=== PATIENT | female | born 1945 | race Two or more races ===

== ENCOUNTER 2022-10-15 21:11 | Emergency (ER) | payer OTHER ==
[~2022-10-15] VITALS: Ht 157.5 cm; Wt 100.0 kg
[2022-10-16 01:28] VITALS: BP 141/51
== END 2022-10-16 01:31 | disposition home or self-care (01) ==
LOC: ER 21:11
DX: S62.112A Displaced fracture of triquetrum [cuneiform] bone, left wrist, initial encounter for closed fracture (principal); S00.83XA Contusion of other part of head, initial encounter; I10 Essential (primary) hypertension; E11.9 Type 2 diabetes mellitus without complications; Z88.8 Allergy status to other drugs, medicaments and biological substances; W01.198A Fall on same level from slipping, tripping and stumbling with subsequent striking against other object, initial encounter; Y93.89 Activity, other specified; Y92.89 Other specified places as the place of occurrence of the external cause; Y99.8 Other external cause status
CPT/HCPCS: 29125; 70450; 70486; 73110; 73130

== ENCOUNTER 2023-02-26 10:58 | Emergency (ER) | payer OTHER ==
[~2023-02-26] VITALS: Ht 157.5 cm; Wt 83.9 kg
[2023-02-26 12:40] VITALS: BP 182/72; PULSE 77; RESP 18; TEMP 97; O2SAT 96
[2023-02-26] MEDS ORDERED: DexAMETHasone SOD PHOS 4 MG/1ML SDV INJ IM ONE (13:15)
[2023-02-26] MEDS ORDERED: diphenhdrAMINE HCL 50 MG/1 ML VL IM ONE (13:15)
[2023-02-26] MEDS ORDERED: TRIA0.02 TOP (13:31)
[2023-02-26] MEDS ORDERED: HYDR-5028 PO (13:31)
[2023-02-26] MEDS ORDERED: METH4PAK PO (13:31)
== END 2023-02-26 13:32 | disposition home or self-care (01) ==
LOC: ER 10:58
DX: L30.9 Dermatitis, unspecified (principal); I10 Essential (primary) hypertension; E11.9 Type 2 diabetes mellitus without complications; Z88.8 Allergy status to other drugs, medicaments and biological substances
CPT/HCPCS: 96372; 99284; J1100; J1200

== ENCOUNTER 2023-07-23 18:21 | Emergency (ER) | payer OTHER ==
[~2023-07-23] VITALS: Ht 157.5 cm; Wt 91.2 kg
[~2023-07-23 18:21] MED LIST: HYDR-5028 PO; METH4PAK PO; TRIA0.02 TOP
[2023-07-23 21:45] VITALS: BP 159/72; PULSE 66; RESP 18; TEMP 98; O2SAT 95
[2023-07-23] MEDS ORDERED: LIDOCAINE 1% HCL (LOCAL ANESTH.) INJ 20ML MDV ONE (22:14)
[2023-07-23] MEDS ORDERED: LIDOCAINE 1% HCL (LOCAL ANESTH.) INJ 20ML MDV ID ONE (22:15)
[2023-07-23] MEDS ORDERED: ACETAMINOPHEN 325 MG TAB PO ONE (23:00)
== END 2023-07-23 23:18 | disposition home or self-care (01) ==
LOC: ER 18:21
DX: S01.81XA Laceration without foreign body of other part of head, initial encounter (principal); I10 Essential (primary) hypertension; E11.9 Type 2 diabetes mellitus without complications; Z79.899 Other long term (current) drug therapy; Z88.8 Allergy status to other drugs, medicaments and biological substances; W01.198A Fall on same level from slipping, tripping and stumbling with subsequent striking against other object, initial encounter; Y93.89 Activity, other specified; Y92.89 Other specified places as the place of occurrence of the external cause; Y99.8 Other external cause status
CPT/HCPCS: 12001; 70450; 70486; 72125; 99284; J2001